=== PATIENT | male | born 1955 | race African-American/Black ===

== ENCOUNTER 2019-04-18 17:27 | Inpatient (IN) | payer MEDICARE, MEDICAID ==
[~2019-04-18] VITALS: Ht 188 cm; Wt 108.8 kg
[~2019-04-18 17:27] MED LIST: AMLO-150 PO; HYDR25TA6 PO
--- NOTE | 2019-04-18 18:08 | NUR ---
PT RESTING BACK IN BED, RESPIRATIONS EVEN AND UNLABORED ON NC. NAD NOTED AT THIS TIME. AT BEDSIDE. SIDE RAIL UP, CALL LIGHT IN REACH. AWAITING ERMD ORDERS.
[2019-04-18] MEDS ORDERED: SODIUM CHLORIDE FLUSH 10ML SYR IVF ONE (18:30)
[2019-04-18] MEDS ORDERED: SODIUM CHLORIDE 0.9% 1,000ML IVBOLUS ONE ×2 (18:30→19:00)
[2019-04-18 18:46] LABS: MEAN CORPUSCULAR HEMOGLOBIN 31.2 pg (27.5-34.5); MEAN CORPUSCULAR HGB CONC 33.7 g/dL (33.2-36.2); MEAN CORPUSCULAR VOLUME 92.5 fL (81-97); MEAN PLATELET VOLUME 9.1 fL (7.4-10.4); PLATELET COUNT 182 x10^3/uL (130-400); RED BLOOD COUNT 4.81 x10^6/uL (4.38-5.82); RED CELL DISTRIBUTION WIDTH 13.9 % (9.4-14.8)
[2019-04-18 18:48] LABS: ALANINE AMINOTRANSFERASE 32 U/L (12-78); ALBUMIN 2.8 g/dL (3.4-5.0); ANION GAP 10 mmol/L (5-15); CALCIUM 8.4 mg/dL (8.5-10.1); CHLORIDE 110 mmol/L (98-107); CREATININE 1.45 mg/dL (0.7-1.3)
[2019-04-18 18:52] LABS: ALKALINE PHOSPHATASE 71 U/L (45-117); BILIRUBIN,TOTAL 1.2 mg/dL (0.2-1.0)
[2019-04-18] MEDS ORDERED: CEFTRIAXONE PMX 1GM/50ML 50 ML IVPB ONE (19:00)
[2019-04-18] MEDS ORDERED: DOXYCYCLINE 100 MG in DEXTROSE 5% 250 ML IV ONE (19:00)
[2019-04-18 19:05] LABS: BASOPHILS % (AUTO) 0 % (0-1); EOSINOPHILS % (AUTO) 0 % (1-7); LYMPHOCYTES # (AUTO) 0.44 x10^3/uL (1-3.4); LYMPHOCYTES % (AUTO) 8 % (22-44); MD SCAN; MONOCYTES # (AUTO) 0.11 x10^3/uL (0.2-0.8); MONOCYTES % (AUTO) 2 % (2-9); NEUTROPHILS % (AUTO) 90 % (42-75)
[2019-04-18] MEDS ORDERED: CEFTRIAXONE PMX 1GM/50ML 50 ML ONE (19:05)
--- NOTE | 2019-04-18 19:18 | NUR ---
HOSPITALIST AT BEDSIDE FOR ASSESSMENT. NAD NOTED AT THIS TIME. SIDE RAILS UP, CALL LIGHT IN REACH. FIRST LITER STILL INFUSING, WELL IV ABX.
--- NOTE | 2019-04-18 20:02 | NUR ---
ANGELES ELLIOTT COMPLETED.
--- NOTE | 2019-04-18 20:04 | NUR ---
FIRST CALL FOR REPORT.
--- NOTE | 2019-04-18 20:25 | NUR ---
SECOND ATTEMPT TO CALL REPORT.
[2019-04-18 20:59] VITALS: BP 130/84
[2019-04-18 21:00] VITALS: BP 130/84
[2019-04-18] MEDS ORDERED: BENZONATATE 100 MG CAPSULE PO SCH (21:00)
[2019-04-18] MEDS ORDERED: CEFTRIAXONE PMX 1GM/50ML 50 ML IV ONE (21:00)
[2019-04-18] MEDS ORDERED: DOCUSATE 100 MG CAPSULE PO PRN (21:00)
[2019-04-18] MEDS ORDERED: ONDANSETRON ODT 4 MG PO PRN (21:00)
[2019-04-18] MEDS ORDERED: TRAZODONE 50MG TABLET PO PRN (21:00)
[2019-04-18] MEDS ORDERED: NICOTINE GUM 2 MG BC PRN (21:00)
[2019-04-18] MEDS ORDERED: ACETAMINOPHEN 325 MG TABLET PO PRN (21:00)
[2019-04-18] MEDS: SODIUM CHLORIDE 0.9% 1,000 ML IV SCH (22:16)
[2019-04-18] MEDS: HEPARIN 5,000 UNITS/ML, 1ML SQ SCH (22:17)
[2019-04-18] MEDS: LIDODERM 5% PATCH TD PRN (22:17)
[2019-04-19 02:07] VITALS: BP 107/65
[2019-04-19] MEDS: HEPARIN 5,000 UNITS/ML, 1ML SQ SCH ×2 (04:44→13:57)
[2019-04-19 05:43] LABS: ANION GAP 9 mmol/L (5-15); CALCIUM 7.5 mg/dL (8.5-10.1); CHLORIDE 111 mmol/L (98-107); CREATININE 1.23 mg/dL (0.7-1.3)
[2019-04-19 05:45] LABS: MEAN CORPUSCULAR HEMOGLOBIN 31.3 pg (27.5-34.5); MEAN CORPUSCULAR HGB CONC 33.7 g/dL (33.2-36.2); MEAN CORPUSCULAR VOLUME 92.9 fL (81-97); MEAN PLATELET VOLUME 9.5 fL (7.4-10.4); PLATELET COUNT 176 x10^3/uL (130-400); RED BLOOD COUNT 4.16 x10^6/uL (4.38-5.82); RED CELL DISTRIBUTION WIDTH 14.6 % (9.4-14.8)
[2019-04-19 06:36] LABS: MD YES
[2019-04-19 06:41] LABS: BAND#(MANUAL) 3.85 x10^3/uL; BANDS%(MANUAL) 47 % (0-7); BASOS#(MANUAL) 0.08 x10^3/uL (0-0.1); BASOS% (MANUAL) 1 % (0-1); LYMPH#(MANUAL) 1.07 x10^3/uL (1-3.4); LYMPHS% (MANUAL) 13 % (22-44); METAMYELOCYTES# (MANUAL) 1.23 x10^3/uL (0-0); METAMYELOCYTES% (MANUAL) 15 % (0-1); MONOS#(MANUAL) 0.25 x10^3/uL (0.3-2.7); MONOS% (MANUAL) 3 % (2-9); SEG#(MANUAL) 1.72 x10^3/uL (1.8-6.8); SEGS% (MANUAL) 21 % (42-75)
[2019-04-19 06:42] LABS: <PLATELET ESTIMATE> ADEQUATE; <RBC MORPHOLOGY> NORMAL
[2019-04-19 06:43] LABS: LARGE PLATELETS 1+
[2019-04-19 07:16] VITALS: BP 116/77
[2019-04-19] MEDS: SODIUM CHLORIDE 0.9% 1,000 ML IV SCH ×2 (07:48→21:00)
[2019-04-19] MEDS ORDERED: VANCOMYCIN PER PHARMACY MC PRN (08:30)
[2019-04-19] MEDS ORDERED: PHARMACOKINETIC MONITORING MC PRN (09:00)
[2019-04-19] MEDS ORDERED: VANCOMYCIN 2,500 MG in SODIUM CHLORIDE 0.9% 500 ML IV ONE (09:00)
[2019-04-19] MEDS ORDERED: VANCOMYCIN 2,000 MG in SODIUM CHLORIDE 0.9% 250 ML IV SCH (09:00)
[2019-04-19] MEDS: PIPERACILLIN/TAZO/PMX 3.375GM 50 ML IV SCH ×2 (13:59→20:25)
[2019-04-19 14:26] VITALS: BP 115/76
[2019-04-19] MEDS ORDERED: CEFTRIAXONE PMX 2GM/50ML 50 ML IV SCH (19:00)
[2019-04-19 19:15] VITALS: BP 116/78
[2019-04-20 00:47] VITALS: BP 103/74
[2019-04-20] MEDS: HEPARIN 5,000 UNITS/ML, 1ML SQ SCH ×3 (01:14→17:00)
[2019-04-20] MEDS: PIPERACILLIN/TAZO/PMX 3.375GM 50 ML IV SCH ×4 (01:51→19:44)
[2019-04-20 04:37] LABS: MEAN CORPUSCULAR HEMOGLOBIN 30.9 pg (27.5-34.5); MEAN CORPUSCULAR HGB CONC 33.2 g/dL (33.2-36.2); MEAN CORPUSCULAR VOLUME 93.1 fL (81-97); MEAN PLATELET VOLUME 8.9 fL (7.4-10.4); PLATELET COUNT 163 x10^3/uL (130-400); RED BLOOD COUNT 3.85 x10^6/uL (4.38-5.82); RED CELL DISTRIBUTION WIDTH 14.3 % (9.4-14.8)
[2019-04-20 04:42] LABS: ALBUMIN 1.8 g/dL (3.4-5.0); ANION GAP 5 mmol/L (5-15); CALCIUM 7.6 mg/dL (8.5-10.1); CHLORIDE 111 mmol/L (98-107)
[2019-04-20 04:46] LABS: ALANINE AMINOTRANSFERASE 23 U/L (12-78); ALKALINE PHOSPHATASE 54 U/L (45-117); BILIRUBIN,TOTAL 0.8 mg/dL (0.2-1.0); CREATININE 1.06 mg/dL (0.7-1.3); TOTAL PROTEIN 5.9 g/dL (6.4-8.2)
[2019-04-20 05:15] LABS: <PLATELET ESTIMATE> ADEQUATE; <RBC MORPHOLOGY> NORMAL; BAND#(MANUAL) 1.22 x10^3/uL; BANDS%(MANUAL) 9 % (0-7); LYMPH#(MANUAL) 2.16 x10^3/uL (1-3.4); LYMPHS% (MANUAL) 16 % (22-44); MD YES; METAMYELOCYTES# (MANUAL) 0.27 x10^3/uL (0-0); METAMYELOCYTES% (MANUAL) 2 % (0-1); MONOS#(MANUAL) 0.41 x10^3/uL (0.3-2.7); MONOS% (MANUAL) 3 % (2-9); SEG#(MANUAL) 9.45 x10^3/uL (1.8-6.8); SEGS% (MANUAL) 70 % (42-75)
[2019-04-20 05:16] LABS: LARGE PLATELETS 1+
[2019-04-20] MEDS: SODIUM CHLORIDE 0.9% 1,000 ML IV SCH ×2 (06:30→21:00)
[2019-04-20 07:05] VITALS: BP 114/78
[2019-04-20] MEDS ORDERED: POTASSIUM PHOSPHATE 44 MEQ in SODIUM CHLORIDE 0.9% 500 ML IV ONE (08:00)
[2019-04-20] MEDS ORDERED: POTASSIUM CHLORIDE 20 MEQ TAB.ER.PRT PO ONE ×2 (08:00→11:00)
[2019-04-20] MEDS ORDERED: MAGNESIUM SULFATE PMX 2GM/50ML 50 ML IV ONE (08:00)
[2019-04-20] MEDS ORDERED: VANCOMYCIN 2,000 MG in SODIUM CHLORIDE 0.9% 250 ML IV SCH (09:30)
[2019-04-20] MEDS ORDERED: VANCOMYCIN 2,000 MG in SODIUM CHLORIDE 0.9% 500 ML IV SCH (09:30)
[2019-04-20 13:45] VITALS: BP 117/89
[2019-04-20 19:15] VITALS: BP 133/79
[2019-04-21] MEDS: HEPARIN 5,000 UNITS/ML, 1ML SQ SCH ×3 (00:41→17:08)
[2019-04-21 01:07] VITALS: BP 106/78
[2019-04-21] MEDS: PIPERACILLIN/TAZO/PMX 3.375GM 50 ML IV SCH ×3 (01:55→14:28)
[2019-04-21] MEDS ORDERED: VANCOMYCIN 2,000 MG in SODIUM CHLORIDE 0.9% 500 ML IV SCH (04:00)
[2019-04-21] MEDS: SODIUM CHLORIDE 0.9% 1,000 ML IV SCH ×3 (04:48→22:22)
[2019-04-21 05:15] LABS: MEAN CORPUSCULAR HEMOGLOBIN 30.9 pg (27.5-34.5); MEAN CORPUSCULAR HGB CONC 33.2 g/dL (33.2-36.2); MEAN PLATELET VOLUME 8.9 fL (7.4-10.4); PLATELET COUNT 188 x10^3/uL (130-400); RED BLOOD COUNT 3.88 x10^6/uL (4.38-5.82); RED CELL DISTRIBUTION WIDTH 14.2 % (9.4-14.8)
[2019-04-21 05:25] LABS: ALANINE AMINOTRANSFERASE 27 U/L (12-78); ALBUMIN 1.8 g/dL (3.4-5.0); ANION GAP 8 mmol/L (5-15); CALCIUM 7.6 mg/dL (8.5-10.1); CHLORIDE 112 mmol/L (98-107); CREATININE 0.98 mg/dL (0.7-1.3)
[2019-04-21 05:28] LABS: ALKALINE PHOSPHATASE 74 U/L (45-117); BILIRUBIN,TOTAL 0.6 mg/dL (0.2-1.0); TOTAL PROTEIN 5.9 g/dL (6.4-8.2)
[2019-04-21 06:08] LABS: MD YES
[2019-04-21 06:11] LABS: BAND#(MANUAL) 0.79 x10^3/uL; BANDS%(MANUAL) 5 % (0-7); BASOS#(MANUAL) 0.16 x10^3/uL (0-0.1); BASOS% (MANUAL) 1 % (0-1); EOS#(MANUAL) 0.16 x10^3/uL (0.0-0.4); EOS% (MANUAL) 1 % (1-7); LYMPH#(MANUAL) 1.42 x10^3/uL (1-3.4); LYMPHS% (MANUAL) 9 % (22-44); MONOS#(MANUAL) 1.11 x10^3/uL (0.3-2.7); MONOS% (MANUAL) 7 % (2-9); REACTIVE LYMPHS # (MANUAL) 0.16 x10^3/uL (0-0); REACTIVE LYMPHS % (MANUAL) 1 % (0-0); SEG#(MANUAL) 12.01 x10^3/uL (1.8-6.8); SEGS% (MANUAL) 76 % (42-75)
[2019-04-21 06:12] LABS: <PLATELET ESTIMATE> ADEQUATE; <PLT MORPHOLOGY> NORMAL PLT MORPH; <RBC MORPHOLOGY> NORMAL
[2019-04-21 06:58] VITALS: BP 139/88
[2019-04-21 13:16] VITALS: BP_SYST 163; BP_SYST 164; BP_DIAS 101; BP_DIAS 103
[2019-04-21 13:28] VITALS: BP 155/95
[2019-04-21] MEDS: CEFTRIAXONE PMX 2GM/50ML 50 ML IV SCH (17:21)
[2019-04-21] MEDS: AMLODIPINE 5 MG TABLET PO SCH (17:21)
[2019-04-21 19:55] VITALS: BP 140/72
[2019-04-22] MEDS: HEPARIN 5,000 UNITS/ML, 1ML SQ SCH ×3 (01:34→16:47)
[2019-04-22 02:30] VITALS: BP 151/98
[2019-04-22 05:17] LABS: ALBUMIN 1.9 g/dL (3.4-5.0); ANION GAP 7 mmol/L (5-15); CALCIUM 8.4 mg/dL (8.5-10.1); CHLORIDE 113 mmol/L (98-107)
[2019-04-22 05:18] LABS: MEAN CORPUSCULAR HEMOGLOBIN 30.7 pg (27.5-34.5); MEAN CORPUSCULAR HGB CONC 32.8 g/dL (33.2-36.2); MEAN CORPUSCULAR VOLUME 93.6 fL (81-97); MEAN PLATELET VOLUME 8.3 fL (7.4-10.4); PLATELET COUNT 259 x10^3/uL (130-400); RED BLOOD COUNT 4.26 x10^6/uL (4.38-5.82)
[2019-04-22 05:22] LABS: ALANINE AMINOTRANSFERASE 33 U/L (12-78); ALKALINE PHOSPHATASE 83 U/L (45-117); BILIRUBIN,TOTAL 0.5 mg/dL (0.2-1.0); CREATININE 0.86 mg/dL (0.7-1.3); TOTAL PROTEIN 6.8 g/dL (6.4-8.2)
[2019-04-22 06:03] LABS: MD YES
[2019-04-22 06:04] LABS: BANDS%(MANUAL) 6 % (0-7); EOS#(MANUAL) 0.13 x10^3/uL (0.0-0.4); EOS% (MANUAL) 1 % (1-7); LYMPH#(MANUAL) 2.68 x10^3/uL (1-3.4); LYMPHS% (MANUAL) 20 % (22-44); MONOS#(MANUAL) 1.21 x10^3/uL (0.3-2.7); MONOS% (MANUAL) 9 % (2-9); MYELOCYTES# (MANUAL) 0.13 x10^3/uL (0-0); MYELOCYTES% (MANUAL) 1 % (0-0); SEG#(MANUAL) 8.44 x10^3/uL (1.8-6.8); SEGS% (MANUAL) 63 % (42-75)
[2019-04-22] MEDS: SODIUM CHLORIDE 0.9% 1,000 ML IV SCH ×3 (06:06→21:45)
[2019-04-22 06:07] LABS: <RBC MORPHOLOGY> NORMAL
[2019-04-22 06:08] LABS: <PLATELET ESTIMATE> ADEQUATE; LARGE PLATELETS 1+
[2019-04-22 08:02] VITALS: BP 162/101
[2019-04-22] MEDS: AMLODIPINE 5 MG TABLET PO SCH (08:31)
[2019-04-22 12:39] VITALS: BP 133/71
[2019-04-22] MEDS: CEFTRIAXONE PMX 2GM/50ML 50 ML IV SCH (16:42)
[2019-04-22 19:25] VITALS: BP 154/73
[2019-04-23] MEDS: HEPARIN 5,000 UNITS/ML, 1ML SQ SCH ×3 (01:01→17:57)
[2019-04-23 01:54] VITALS: BP 132/69
[2019-04-23] MEDS: SODIUM CHLORIDE 0.9% 1,000 ML IV SCH ×3 (05:32→20:52)
[2019-04-23 05:46] LABS: ALBUMIN 1.9 g/dL (3.4-5.0); ANION GAP 8 mmol/L (5-15); CHLORIDE 110 mmol/L (98-107)
[2019-04-23 05:51] LABS: ALANINE AMINOTRANSFERASE 35 U/L (12-78); ALKALINE PHOSPHATASE 79 U/L (45-117); BILIRUBIN,TOTAL 0.3 mg/dL (0.2-1.0); TOTAL PROTEIN 6.8 g/dL (6.4-8.2)
[2019-04-23 05:55] LABS: BASOPHILS # (AUTO) 0.02 x10^3/uL (0-0.1); BASOPHILS % (AUTO) 0 % (0-1); EOSINOPHILS % (AUTO) 1 % (1-7); LYMPHOCYTES # (AUTO) 2.37 x10^3/uL (1-3.4); LYMPHOCYTES % (AUTO) 24 % (22-44); MD NO; MEAN CORPUSCULAR HEMOGLOBIN 30.9 pg (27.5-34.5); MEAN CORPUSCULAR HGB CONC 33.5 g/dL (33.2-36.2); MEAN CORPUSCULAR VOLUME 92.4 fL (81-97); MEAN PLATELET VOLUME 8.6 fL (7.4-10.4); MONOCYTES # (AUTO) 1.42 x10^3/uL (0.2-0.8); MONOCYTES % (AUTO) 14 % (2-9); NEUTROPHILS # (AUTO) 5.93 x10^3/uL (1.8-6.8); NEUTROPHILS % (AUTO) 60 % (42-75); PLATELET COUNT 255 x10^3/uL (130-400); RED BLOOD COUNT 4.26 x10^6/uL (4.38-5.82); RED CELL DISTRIBUTION WIDTH 14.4 % (9.4-14.8)
[2019-04-23] MEDS ORDERED: POTASSIUM CHLORIDE 20 MEQ TAB.ER.PRT PO ONE (07:30)
[2019-04-23 08:14] VITALS: BP 161/94
[2019-04-23] MEDS: AMLODIPINE 5 MG TABLET PO SCH (08:16)
[2019-04-23] MEDS ORDERED: AMLODIPINE 5 MG TABLET PO ONE (12:30)
[2019-04-23 15:49] VITALS: BP 168/83
[2019-04-23 17:33] VITALS: BP 139/83
[2019-04-23] MEDS: CEFTRIAXONE PMX 2GM/50ML 50 ML IV SCH (17:58)
[2019-04-23 21:44] VITALS: BP 145/84
[2019-04-24] MEDS: HEPARIN 5,000 UNITS/ML, 1ML SQ SCH ×3 (01:03→17:00)
[2019-04-24 01:19] VITALS: BP 144/87
[2019-04-24] MEDS: SODIUM CHLORIDE 0.9% 1,000 ML IV SCH ×3 (02:23→20:57)
[2019-04-24 07:23] VITALS: BP 134/88
[2019-04-24] MEDS ORDERED: AMLODIPINE 5 MG TABLET PO SCH (09:00)
[2019-04-24] MEDS: AMLODIPINE 10 MG TAB PO SCH (10:20)
[2019-04-24] MEDS: HYDROCHLOROTHIAZIDE 25 MG TABLET PO SCH (10:20)
[2019-04-24 12:37] VITALS: BP 130/86
[2019-04-24] MEDS: CEFTRIAXONE PMX 2GM/50ML 50 ML IV SCH (17:31)
[2019-04-24 19:08] VITALS: BP 122/78
[2019-04-25] MEDS: HEPARIN 5,000 UNITS/ML, 1ML SQ SCH ×3 (01:05→17:48)
[2019-04-25] MEDS: SODIUM CHLORIDE 0.9% 1,000 ML IV SCH ×3 (01:22→21:30)
[2019-04-25 02:26] VITALS: BP 116/76
[2019-04-25 07:07] LABS: ANION GAP 8 mmol/L (5-15); CALCIUM 8.8 mg/dL (8.5-10.1); CHLORIDE 109 mmol/L (98-107)
[2019-04-25 07:09] LABS: CREATININE 0.93 mg/dL (0.7-1.3)
[2019-04-25 07:30] VITALS: BP 118/81
[2019-04-25] MEDS: HYDROCHLOROTHIAZIDE 25 MG TABLET PO SCH (09:18)
[2019-04-25] MEDS: AMLODIPINE 10 MG TAB PO SCH (09:18)
[2019-04-25 13:30] VITALS: BP 106/68
[2019-04-25 17:22] VITALS: BP 127/86
[2019-04-25] MEDS: CEFTRIAXONE PMX 2GM/50ML 50 ML IV SCH (17:48)
[2019-04-26] MEDS: HEPARIN 5,000 UNITS/ML, 1ML SQ SCH ×3 (01:20→17:38)
[2019-04-26 01:22] VITALS: BP 120/76
[2019-04-26] MEDS: SODIUM CHLORIDE 0.9% 1,000 ML IV SCH ×3 (05:30→21:30)
[2019-04-26 06:55] VITALS: BP 129/76
[2019-04-26 08:17] LABS: ANION GAP 9 mmol/L (5-15); CALCIUM 8.8 mg/dL (8.5-10.1); CHLORIDE 103 mmol/L (98-107); CREATININE 0.98 mg/dL (0.7-1.3)
[2019-04-26 08:38] LABS: MEAN CORPUSCULAR HEMOGLOBIN 31.6 pg (27.5-34.5); MEAN CORPUSCULAR HGB CONC 33.9 g/dL (33.2-36.2); MEAN CORPUSCULAR VOLUME 93.2 fL (81-97); RED BLOOD COUNT 4.32 x10^6/uL (4.38-5.82); RED CELL DISTRIBUTION WIDTH 14.4 % (9.4-14.8)
[2019-04-26 08:57] LABS: BASOPHILS # (AUTO) 0.04 x10^3/uL (0-0.1); BASOPHILS % (AUTO) 0 % (0-1); EOSINOPHILS % (AUTO) 2 % (1-7); LYMPHOCYTES # (AUTO) 1.68 x10^3/uL (1-3.4); LYMPHOCYTES % (AUTO) 16 % (22-44); MD SCAN; MEAN PLATELET VOLUME 7.8 fL (7.4-10.4); MONOCYTES # (AUTO) 0.29 x10^3/uL (0.2-0.8); MONOCYTES % (AUTO) 3 % (2-9); NEUTROPHILS # (AUTO) 8.21 x10^3/uL (1.8-6.8); NEUTROPHILS % (AUTO) 79 % (42-75); PLATELET COUNT 406 x10^3/uL (130-400)
[2019-04-26] MEDS: HYDROCHLOROTHIAZIDE 25 MG TABLET PO SCH (09:22)
[2019-04-26] MEDS: AMLODIPINE 10 MG TAB PO SCH (09:22)
[2019-04-26] MEDS: PIPERACILLIN/TAZO/PMX 4.5GM 100 ML IV SCH ×2 (13:39→19:52)
[2019-04-26 14:16] VITALS: BP 140/89
[2019-04-26] MEDS: CEFTRIAXONE PMX 2GM/50ML 50 ML IV SCH (17:37)
[2019-04-26 19:22] VITALS: BP 146/86
[2019-04-27] MEDS: PIPERACILLIN/TAZO/PMX 4.5GM 100 ML IV SCH ×4 (01:30→20:20)
[2019-04-27] MEDS: HEPARIN 5,000 UNITS/ML, 1ML SQ SCH ×3 (01:30→17:16)
[2019-04-27 02:47] VITALS: BP 118/54
[2019-04-27] MEDS: SODIUM CHLORIDE 0.9% 1,000 ML IV SCH ×2 (05:30→20:00)
[2019-04-27] MEDS ORDERED: VANCOMYCIN PER PHARMACY MC PRN (07:30)
[2019-04-27] MEDS: HYDROCHLOROTHIAZIDE 25 MG TABLET PO SCH (08:04)
[2019-04-27] MEDS: AMLODIPINE 10 MG TAB PO SCH (08:04)
[2019-04-27 08:22] VITALS: BP 120/79
[2019-04-27] MEDS ORDERED: PHARMACOKINETIC CONSULTATION MC ONE (08:30)
[2019-04-27] MEDS ORDERED: PHARMACOKINETIC MONITORING MC PRN (08:30)
[2019-04-27 08:37] LABS: BASOPHILS # (AUTO) 0.02 x10^3/uL (0-0.1); BASOPHILS % (AUTO) 0 % (0-1); EOSINOPHILS # (AUTO) 0.11 x10^3/uL (0-0.4); EOSINOPHILS % (AUTO) 1 % (1-7); LYMPHOCYTES # (AUTO) 0.83 x10^3/uL (1-3.4); LYMPHOCYTES % (AUTO) 9 % (22-44); MD NO; MEAN CORPUSCULAR HEMOGLOBIN 30.9 pg (27.5-34.5); MEAN CORPUSCULAR HGB CONC 33.6 g/dL (33.2-36.2); MEAN PLATELET VOLUME 7.5 fL (7.4-10.4); MONOCYTES # (AUTO) 0.34 x10^3/uL (0.2-0.8); MONOCYTES % (AUTO) 4 % (2-9); NEUTROPHILS # (AUTO) 8.08 x10^3/uL (1.8-6.8); NEUTROPHILS % (AUTO) 86 % (42-75); PLATELET COUNT 432 x10^3/uL (130-400); RED BLOOD COUNT 4.31 x10^6/uL (4.38-5.82); RED CELL DISTRIBUTION WIDTH 14.5 % (9.4-14.8)
[2019-04-27 08:48] LABS: ALANINE AMINOTRANSFERASE 49 U/L (12-78); ALBUMIN 2.2 g/dL (3.4-5.0); ANION GAP 5 mmol/L (5-15); CALCIUM 8.6 mg/dL (8.5-10.1); CHLORIDE 102 mmol/L (98-107)
[2019-04-27 08:50] LABS: ALKALINE PHOSPHATASE 84 U/L (45-117); BILIRUBIN,TOTAL 0.4 mg/dL (0.2-1.0); TOTAL PROTEIN 7.8 g/dL (6.4-8.2)
[2019-04-27] MEDS: VANCOMYCIN 2,000 MG in SODIUM CHLORIDE 0.9% 500 ML IV SCH (09:22)
[2019-04-27 14:30] VITALS: BP 118/68
[2019-04-27] MEDS ORDERED: OMNIPAQUE 350 MG/ML, 100ML BOTTLE ONE (19:24)
[2019-04-27 19:49] VITALS: BP 142/85
[2019-04-28 01:22] VITALS: BP 126/73
[2019-04-28] MEDS: HEPARIN 5,000 UNITS/ML, 1ML SQ SCH ×3 (01:28→17:23)
[2019-04-28] MEDS: PIPERACILLIN/TAZO/PMX 4.5GM 100 ML IV SCH ×2 (02:20→08:25)
[2019-04-28] MEDS: VANCOMYCIN 2,000 MG in SODIUM CHLORIDE 0.9% 500 ML IV SCH (03:42)
[2019-04-28] MEDS: SODIUM CHLORIDE 0.9% 1,000 ML IV SCH ×2 (03:45→12:46)
[2019-04-28 05:23] LABS: BASOPHILS # (AUTO) 0.03 x10^3/uL (0-0.1); BASOPHILS % (AUTO) 0 % (0-1); EOSINOPHILS % (AUTO) 1 % (1-7); LYMPHOCYTES # (AUTO) 1.16 x10^3/uL (1-3.4); LYMPHOCYTES % (AUTO) 11 % (22-44); MD NO; MEAN CORPUSCULAR HGB CONC 33.4 g/dL (33.2-36.2); MEAN CORPUSCULAR VOLUME 92.8 fL (81-97); MEAN PLATELET VOLUME 7.5 fL (7.4-10.4); MONOCYTES # (AUTO) 0.73 x10^3/uL (0.2-0.8); MONOCYTES % (AUTO) 7 % (2-9); NEUTROPHILS # (AUTO) 8.39 x10^3/uL (1.8-6.8); NEUTROPHILS % (AUTO) 81 % (42-75); PLATELET COUNT 417 x10^3/uL (130-400); RED BLOOD COUNT 4.02 x10^6/uL (4.38-5.82); RED CELL DISTRIBUTION WIDTH 14.7 % (9.4-14.8)
[2019-04-28 05:30] LABS: ANION GAP 6 mmol/L (5-15); CALCIUM 8.6 mg/dL (8.5-10.1); CHLORIDE 101 mmol/L (98-107); CREATININE 1.06 mg/dL (0.7-1.3)
[2019-04-28 07:25] VITALS: BP 115/72
[2019-04-28] MEDS: HYDROCHLOROTHIAZIDE 25 MG TABLET PO SCH (08:24)
[2019-04-28] MEDS: AMLODIPINE 10 MG TAB PO SCH (08:25)
[2019-04-28] MEDS ORDERED: LIDOCAINE 1%, 10ML ONE ×2 (12:19→14:29)
[2019-04-28] MEDS ORDERED: CEFAZOLIN 2,000 MG in SODIUM CHLORIDE 0.9% 50 ML IV SCH (13:00)
[2019-04-28 15:39] VITALS: BP 140/76
[2019-04-28 18:54] VITALS: BP 132/83
[2019-04-28] MEDS: CEFAZOLIN PMX 2GM/50ML 50 ML IVPB SCH (20:09)
[2019-04-29 00:20] VITALS: BP 146/83
[2019-04-29] MEDS: HEPARIN 5,000 UNITS/ML, 1ML SQ SCH ×3 (00:51→17:03)
[2019-04-29] MEDS: CEFAZOLIN PMX 2GM/50ML 50 ML IVPB SCH ×3 (03:56→20:26)
[2019-04-29 07:15] VITALS: BP 136/71
[2019-04-29] MEDS: HYDROCHLOROTHIAZIDE 25 MG TABLET PO SCH (08:36)
[2019-04-29] MEDS: AMLODIPINE 10 MG TAB PO SCH (08:36)
[2019-04-29 14:29] VITALS: BP 143/82
[2019-04-29 19:57] VITALS: BP 128/77
[2019-04-30 00:58] VITALS: BP 126/82
[2019-04-30] MEDS: HEPARIN 5,000 UNITS/ML, 1ML SQ SCH ×3 (01:35→16:36)
[2019-04-30] MEDS: CEFAZOLIN PMX 2GM/50ML 50 ML IVPB SCH ×3 (04:13→19:46)
[2019-04-30 05:22] LABS: CHLORIDE 100 mmol/L (98-107)
[2019-04-30 05:31] LABS: BASOPHILS # (AUTO) 0.02 x10^3/uL (0-0.1); BASOPHILS % (AUTO) 0 % (0-1); EOSINOPHILS # (AUTO) 0.13 x10^3/uL (0-0.4); EOSINOPHILS % (AUTO) 2 % (1-7); LYMPHOCYTES % (AUTO) 21 % (22-44); MD NO; MEAN CORPUSCULAR HEMOGLOBIN 31.3 pg (27.5-34.5); MEAN CORPUSCULAR HGB CONC 33.8 g/dL (33.2-36.2); MEAN CORPUSCULAR VOLUME 92.7 fL (81-97); MEAN PLATELET VOLUME 7.5 fL (7.4-10.4); MONOCYTES # (AUTO) 0.63 x10^3/uL (0.2-0.8); MONOCYTES % (AUTO) 7 % (2-9); NEUTROPHILS # (AUTO) 6.12 x10^3/uL (1.8-6.8); NEUTROPHILS % (AUTO) 70 % (42-75); PLATELET COUNT 507 x10^3/uL (130-400); RED CELL DISTRIBUTION WIDTH 14.3 % (9.4-14.8)
[2019-04-30 05:33] LABS: ANION GAP 5 mmol/L (5-15)
[2019-04-30 07:02] VITALS: BP 131/81
[2019-04-30] MEDS: AMLODIPINE 10 MG TAB PO SCH (08:53)
[2019-04-30] MEDS: HYDROCHLOROTHIAZIDE 25 MG TABLET PO SCH (08:53)
[2019-04-30 12:11] VITALS: BP 119/82
[2019-04-30 18:48] VITALS: BP 141/87
[2019-05-01 00:33] VITALS: BP 118/71
[2019-05-01] MEDS: HEPARIN 5,000 UNITS/ML, 1ML SQ SCH ×3 (00:41→17:28)
[2019-05-01] MEDS: CEFAZOLIN PMX 2GM/50ML 50 ML IVPB SCH ×3 (04:05→19:57)
[2019-05-01 05:10] LABS: BASOPHILS # (AUTO) 0.02 x10^3/uL (0-0.1); BASOPHILS % (AUTO) 0 % (0-1); EOSINOPHILS # (AUTO) 0.15 x10^3/uL (0-0.4); EOSINOPHILS % (AUTO) 2 % (1-7); LYMPHOCYTES # (AUTO) 1.95 x10^3/uL (1-3.4); LYMPHOCYTES % (AUTO) 21 % (22-44); MD NO; MEAN CORPUSCULAR HEMOGLOBIN 30.6 pg (27.5-34.5); MEAN CORPUSCULAR VOLUME 92.7 fL (81-97); MEAN PLATELET VOLUME 7.9 fL (7.4-10.4); MONOCYTES # (AUTO) 0.57 x10^3/uL (0.2-0.8); MONOCYTES % (AUTO) 6 % (2-9); NEUTROPHILS # (AUTO) 6.66 x10^3/uL (1.8-6.8); NEUTROPHILS % (AUTO) 71 % (42-75); PLATELET COUNT 504 x10^3/uL (130-400); RED BLOOD COUNT 4.03 x10^6/uL (4.38-5.82); RED CELL DISTRIBUTION WIDTH 14.2 % (9.4-14.8)
[2019-05-01 05:28] LABS: ANION GAP 7 mmol/L (5-15); CHLORIDE 99 mmol/L (98-107); CREATININE 0.95 mg/dL (0.7-1.3)
[2019-05-01 07:09] VITALS: BP 143/75
[2019-05-01] MEDS: AMLODIPINE 10 MG TAB PO SCH (09:13)
[2019-05-01] MEDS: HYDROCHLOROTHIAZIDE 25 MG TABLET PO SCH (09:13)
[2019-05-01] MEDS: LIDODERM 5% PATCH TD PRN (09:14)
[2019-05-01 12:24] VITALS: BP 144/86
[2019-05-01 19:55] VITALS: BP 138/89
[2019-05-02] MEDS: HEPARIN 5,000 UNITS/ML, 1ML SQ SCH ×3 (02:02→18:25)
[2019-05-02 02:15] VITALS: BP 127/85
[2019-05-02] MEDS: CEFAZOLIN PMX 2GM/50ML 50 ML IVPB SCH ×3 (03:41→20:11)
[2019-05-02 04:44] LABS: BASOPHILS # (AUTO) 0.04 x10^3/uL (0-0.1); BASOPHILS % (AUTO) 1 % (0-1); EOSINOPHILS # (AUTO) 0.13 x10^3/uL (0-0.4); EOSINOPHILS % (AUTO) 2 % (1-7); LYMPHOCYTES # (AUTO) 1.86 x10^3/uL (1-3.4); LYMPHOCYTES % (AUTO) 24 % (22-44); MD NO; MEAN CORPUSCULAR HEMOGLOBIN 30.6 pg (27.5-34.5); MEAN CORPUSCULAR VOLUME 92.8 fL (81-97); MEAN PLATELET VOLUME 7.6 fL (7.4-10.4); MONOCYTES # (AUTO) 0.66 x10^3/uL (0.2-0.8); MONOCYTES % (AUTO) 9 % (2-9); NEUTROPHILS # (AUTO) 4.93 x10^3/uL (1.8-6.8); NEUTROPHILS % (AUTO) 65 % (42-75); PLATELET COUNT 517 x10^3/uL (130-400); RED BLOOD COUNT 4.05 x10^6/uL (4.38-5.82); RED CELL DISTRIBUTION WIDTH 14.4 % (9.4-14.8)
[2019-05-02 04:54] LABS: CHLORIDE 98 mmol/L (98-107)
[2019-05-02 04:57] LABS: ANION GAP 6 mmol/L (5-15); CREATININE 0.95 mg/dL (0.7-1.3)
[2019-05-02 07:17] VITALS: BP 128/87
[2019-05-02] MEDS: HYDROCHLOROTHIAZIDE 25 MG TABLET PO SCH (10:59)
[2019-05-02] MEDS: AMLODIPINE 10 MG TAB PO SCH (10:59)
[2019-05-02 13:25] VITALS: BP 144/90
[2019-05-02 19:26] VITALS: BP 133/88
[2019-05-03 01:37] VITALS: BP 125/79
[2019-05-03] MEDS: CEFAZOLIN PMX 2GM/50ML 50 ML IVPB SCH ×3 (04:16→19:57)
[2019-05-03] MEDS: HEPARIN 5,000 UNITS/ML, 1ML SQ SCH ×3 (04:16→19:57)
[2019-05-03 05:09] LABS: HCT (SEDRATE) 36.6 % (39.2-51.8)
[2019-05-03 05:12] LABS: BASOPHILS # (AUTO) 0.03 x10^3/uL (0-0.1); BASOPHILS % (AUTO) 0 % (0-1); EOSINOPHILS # (AUTO) 0.11 x10^3/uL (0-0.4); EOSINOPHILS % (AUTO) 2 % (1-7); LYMPHOCYTES # (AUTO) 1.51 x10^3/uL (1-3.4); LYMPHOCYTES % (AUTO) 22 % (22-44); MD NO; MEAN CORPUSCULAR HEMOGLOBIN 30.7 pg (27.5-34.5); MEAN CORPUSCULAR HGB CONC 33.3 g/dL (33.2-36.2); MEAN CORPUSCULAR VOLUME 92.3 fL (81-97); MEAN PLATELET VOLUME 7.5 fL (7.4-10.4); MONOCYTES # (AUTO) 0.77 x10^3/uL (0.2-0.8); MONOCYTES % (AUTO) 11 % (2-9); NEUTROPHILS # (AUTO) 4.63 x10^3/uL (1.8-6.8); NEUTROPHILS % (AUTO) 66 % (42-75); PLATELET COUNT 538 x10^3/uL (130-400); RED BLOOD COUNT 3.95 x10^6/uL (4.38-5.82); RED CELL DISTRIBUTION WIDTH 14.2 % (9.4-14.8)
[2019-05-03 05:24] LABS: ANION GAP 7 mmol/L (5-15); CALCIUM 8.9 mg/dL (8.5-10.1); CHLORIDE 96 mmol/L (98-107)
[2019-05-03 05:35] LABS: ALANINE AMINOTRANSFERASE 24 U/L (12-78); ALKALINE PHOSPHATASE 95 U/L (45-117); BILIRUBIN,TOTAL 0.3 mg/dL (0.2-1.0); CREATININE 0.93 mg/dL (0.7-1.3); TOTAL PROTEIN 7.8 g/dL (6.4-8.2)
[2019-05-03 07:03] VITALS: BP 131/81
[2019-05-03] MEDS: AMLODIPINE 10 MG TAB PO SCH (08:50)
[2019-05-03] MEDS: HYDROCHLOROTHIAZIDE 25 MG TABLET PO SCH (08:51)
[2019-05-03 12:27] VITALS: BP 129/84
[2019-05-03 13:09] VITALS: BP 132/83
[2019-05-03] MEDS ORDERED: OMNIPAQUE 350 MG/ML, 75ML BOTTLE ONE (15:51)
[2019-05-03 19:05] VITALS: BP 139/86
[2019-05-04 00:48] VITALS: BP 126/75
[2019-05-04] MEDS: HEPARIN 5,000 UNITS/ML, 1ML SQ SCH ×3 (04:04→20:24)
[2019-05-04] MEDS: CEFAZOLIN PMX 2GM/50ML 50 ML IVPB SCH ×3 (04:04→20:24)
[2019-05-04 08:07] VITALS: BP 126/79
[2019-05-04] MEDS: HYDROCHLOROTHIAZIDE 25 MG TABLET PO SCH (08:39)
[2019-05-04] MEDS: AMLODIPINE 10 MG TAB PO SCH (08:39)
[2019-05-04 08:47] LABS: BASOPHILS # (AUTO) 0.02 x10^3/uL (0-0.1); BASOPHILS % (AUTO) 0 % (0-1); EOSINOPHILS # (AUTO) 0.09 x10^3/uL (0-0.4); EOSINOPHILS % (AUTO) 2 % (1-7); LYMPHOCYTES # (AUTO) 1.61 x10^3/uL (1-3.4); LYMPHOCYTES % (AUTO) 30 % (22-44); MD NO; MEAN CORPUSCULAR HEMOGLOBIN 30.6 pg (27.5-34.5); MEAN CORPUSCULAR HGB CONC 32.9 g/dL (33.2-36.2); MEAN CORPUSCULAR VOLUME 93.1 fL (81-97); MEAN PLATELET VOLUME 7.4 fL (7.4-10.4); MONOCYTES % (AUTO) 9 % (2-9); NEUTROPHILS # (AUTO) 3.17 x10^3/uL (1.8-6.8); NEUTROPHILS % (AUTO) 59 % (42-75); PLATELET COUNT 551 x10^3/uL (130-400); RED BLOOD COUNT 4.54 x10^6/uL (4.38-5.82); RED CELL DISTRIBUTION WIDTH 14.2 % (9.4-14.8)
[2019-05-04 08:51] LABS: ANION GAP 5 mmol/L (5-15); CALCIUM 9.4 mg/dL (8.5-10.1); CHLORIDE 98 mmol/L (98-107); CREATININE 0.91 mg/dL (0.7-1.3)
[2019-05-04 13:57] VITALS: BP 126/83
[2019-05-04 18:45] VITALS: BP 127/77
[2019-05-05] MEDS: CEFAZOLIN PMX 2GM/50ML 50 ML IVPB SCH ×3 (04:15→20:45)
[2019-05-05] MEDS: HEPARIN 5,000 UNITS/ML, 1ML SQ SCH ×3 (04:16→20:45)
[2019-05-05 04:27] VITALS: BP 116/72
[2019-05-05 07:01] VITALS: BP 126/77
[2019-05-05] MEDS: HYDROCHLOROTHIAZIDE 25 MG TABLET PO SCH (08:27)
[2019-05-05] MEDS: AMLODIPINE 10 MG TAB PO SCH (08:27)
[2019-05-05 13:33] VITALS: BP 128/75
[2019-05-05 19:29] VITALS: BP 148/80
[2019-05-06 01:34] VITALS: BP 126/83
[2019-05-06] MEDS: CEFAZOLIN PMX 2GM/50ML 50 ML IVPB SCH ×3 (04:00→20:16)
[2019-05-06] MEDS: HEPARIN 5,000 UNITS/ML, 1ML SQ SCH ×3 (04:00→20:16)
[2019-05-06 07:03] VITALS: BP 127/79
[2019-05-06] MEDS: AMLODIPINE 10 MG TAB PO SCH (08:22)
[2019-05-06] MEDS: HYDROCHLOROTHIAZIDE 25 MG TABLET PO SCH (08:23)
[2019-05-06 12:49] VITALS: BP 121/75
[2019-05-06 20:14] VITALS: BP 133/82
[2019-05-07 02:03] VITALS: BP 118/75
[2019-05-07] MEDS: HEPARIN 5,000 UNITS/ML, 1ML SQ SCH ×3 (04:20→19:56)
[2019-05-07] MEDS: CEFAZOLIN PMX 2GM/50ML 50 ML IVPB SCH ×3 (04:20→19:56)
[2019-05-07 06:57] VITALS: BP 124/81
[2019-05-07] MEDS: AMLODIPINE 10 MG TAB PO SCH (08:17)
[2019-05-07] MEDS: HYDROCHLOROTHIAZIDE 25 MG TABLET PO SCH (08:17)
[2019-05-07 12:53] VITALS: BP 139/89
[2019-05-07 18:36] VITALS: BP 146/91
[2019-05-08] MEDS: LIDODERM 5% PATCH TD PRN (00:25)
[2019-05-08 01:40] VITALS: BP 127/82
[2019-05-08] MEDS: CEFAZOLIN PMX 2GM/50ML 50 ML IVPB SCH ×3 (04:15→19:57)
[2019-05-08] MEDS: HEPARIN 5,000 UNITS/ML, 1ML SQ SCH ×3 (04:16→19:58)
[2019-05-08 06:46] VITALS: BP 133/86
[2019-05-08] MEDS: HYDROCHLOROTHIAZIDE 25 MG TABLET PO SCH (08:53)
[2019-05-08] MEDS: AMLODIPINE 10 MG TAB PO SCH (08:53)
[2019-05-08 12:51] VITALS: BP 137/82
[2019-05-08 21:37] VITALS: BP 122/81
[2019-05-09 01:07] VITALS: BP 114/78
[2019-05-09] MEDS: CEFAZOLIN PMX 2GM/50ML 50 ML IVPB SCH ×3 (04:12→20:31)
[2019-05-09] MEDS: HEPARIN 5,000 UNITS/ML, 1ML SQ SCH ×3 (04:12→20:31)
[2019-05-09 08:32] VITALS: BP 131/83
[2019-05-09] MEDS: AMLODIPINE 10 MG TAB PO SCH (09:54)
[2019-05-09] MEDS: HYDROCHLOROTHIAZIDE 25 MG TABLET PO SCH (09:54)
[2019-05-09 14:25] VITALS: BP 164/97
[2019-05-09 19:48] VITALS: BP 133/83
[2019-05-10 03:43] VITALS: BP 135/85
[2019-05-10] MEDS: HEPARIN 5,000 UNITS/ML, 1ML SQ SCH ×2 (03:48→12:00)
[2019-05-10] MEDS: CEFAZOLIN PMX 2GM/50ML 50 ML IVPB SCH (03:48)
[2019-05-10 06:21] LABS: HCT (SEDRATE) 39.3 % (39.2-51.8)
[2019-05-10 06:24] LABS: MEAN CORPUSCULAR HEMOGLOBIN 30.7 pg (27.5-34.5); MEAN CORPUSCULAR HGB CONC 33.9 g/dL (33.2-36.2); MEAN CORPUSCULAR VOLUME 90.6 fL (81-97); MEAN PLATELET VOLUME 6.8 fL (7.4-10.4); PLATELET COUNT 444 x10^3/uL (130-400); RED BLOOD COUNT 4.29 x10^6/uL (4.38-5.82)
[2019-05-10 06:33] LABS: ALANINE AMINOTRANSFERASE 36 U/L (12-78); ALBUMIN 2.3 g/dL (3.4-5.0); ANION GAP 8 mmol/L (5-15); C-REACTIVE PROTEIN, QUANT 0.93 mg/dL (0.02-0.49); CALCIUM 9.1 mg/dL (8.5-10.1); CHLORIDE 102 mmol/L (98-107); CREATININE 1.03 mg/dL (0.7-1.3)
[2019-05-10 06:35] LABS: ALKALINE PHOSPHATASE 103 U/L (45-117); BILIRUBIN,TOTAL 0.2 mg/dL (0.2-1.0); TOTAL PROTEIN 8.1 g/dL (6.4-8.2)
[2019-05-10 06:53] LABS: BASOPHILS # (AUTO) 0.02 x10^3/uL (0-0.1); BASOPHILS % (AUTO) 1 % (0-1); EOSINOPHILS # (AUTO) 0.07 x10^3/uL (0-0.4); EOSINOPHILS % (AUTO) 2 % (1-7); LYMPHOCYTES # (AUTO) 1.71 x10^3/uL (1-3.4); LYMPHOCYTES % (AUTO) 44 % (22-44); MD SCAN; MONOCYTES % (AUTO) 15 % (2-9); NEUTROPHILS # (AUTO) 1.51 x10^3/uL (1.8-6.8); NEUTROPHILS % (AUTO) 39 % (42-75)
[2019-05-10 07:45] VITALS: BP 148/88
[2019-05-10] MEDS: HYDROCHLOROTHIAZIDE 25 MG TABLET PO SCH (09:22)
[2019-05-10] MEDS: AMLODIPINE 10 MG TAB PO SCH (09:22)
[2019-05-10] MEDS ORDERED: AMLO10TA8 PO (12:04)
[2019-05-10] MEDS ORDERED: HYDR25TA6 PO (12:04)
[2019-05-10] MEDS ORDERED: CEFTRIAXONE PMX 2GM/50ML 50 ML IV SCH (12:30)
[2019-05-10 13:40] VITALS: BP 147/88
== END 2019-05-10 14:53 | disposition home or self-care (01) | DRG 871 ==
LOC: ED 18:13 → EDIP 18:55 → 4NE 20:45 → DCLOUNGE 05-10 14:43
PROVIDERS: ADMIT Internal Medicine; ATTEND Family Medicine
PROC: 0W9B3ZZ Drainage of Left Pleural Cavity, Percutaneous Approach (ICD-10-PCS; 2019-04-28)
PROC: 02HV33Z Insertion of Infusion Device into Superior Vena Cava, Percutaneous Approach (ICD-10-PCS; principal; 2019-05-04)
PROC: B548ZZA Ultrasonography of Superior Vena Cava, Guidance (ICD-10-PCS; 2019-05-04)
PROC: B5181ZA Fluoroscopy of Superior Vena Cava using Low Osmolar Contrast, Guidance (ICD-10-PCS; 2019-05-04)
DX: A40.3 Sepsis due to Streptococcus pneumoniae (principal); N17.0 Acute kidney failure with tubular necrosis; J96.01 Acute respiratory failure with hypoxia; R65.20 Severe sepsis without septic shock; J15.4 Pneumonia due to other streptococci; J90 Pleural effusion, not elsewhere classified; E87.2 Acidosis; J44.0 Chronic obstructive pulmonary disease with (acute) lower respiratory infection; Z66 Do not resuscitate; D63.8 Anemia in other chronic diseases classified elsewhere; E87.6 Hypokalemia; E88.09 Other disorders of plasma-protein metabolism, not elsewhere classified; I08.1 Rheumatic disorders of both mitral and tricuspid valves; I10 Essential (primary) hypertension; I27.20 Pulmonary hypertension, unspecified; I25.2 Old myocardial infarction; Z79.899 Other long term (current) drug therapy; Z82.49 Family history of ischemic heart disease and other diseases of the circulatory system; Z71.6 Tobacco abuse counseling; Z72.0 Tobacco use
CPT/HCPCS: 32555; 36415; 36573; 71045; 71046; 71260; 71275; 80048; 80053; 82042; 82150; 82945; 83605; 83615; 83735; 83986; 84100; 84145; 84157; 84443; 85025; 85379; 85651; 86140; 87040; 87070; 87075; 87077; 87102; 87116; 87181; 87205; 87206; 88112; 88305; 89050; 89051; 93005; 93306; 93356; 96361; 96374; G0378; J0690; J0696; J1644; J2543; J3370; J7060; Q9967; C1751; J3475; J7030; J7040